=== PATIENT | male | born 2000 | race Caucasian/White ===

== ENCOUNTER 2024-11-14 16:03 | Outpatient (CLI) | payer MEDICARE, SELFPAY ==
--- NOTE | 2024-11-14 16:07 | XR_ITS ---
PROCEDURE INFORMATION: Exam: XR Abdomen Exam date and time: 11/14/2024 4:07 PM Age: 24 years old Clinical indication: Constipation; Additional info: Assessment of fecal burden-obstipation TECHNIQUE: Imaging protocol: Radiologic exam of the abdomen. Views: Frontal supine view of the abdomen. 1 View. COMPARISON: No relevant prior studies available. FINDINGS: Gastrointestinal tract: Moderate amount of fecal material throughout the ascending, transverse, and descending colon. Nonobstructive bowel gas pattern. Intraperitoneal space: There is no free intraperitoneal air. No abnormal intraperitoneal calcifications. Bones/joints: No acute skeletal abnormality or aggressive osseous lesion. IMPRESSION: Moderate constipation.
== END 2024-11-14 23:59 | disposition home or self-care (01) ==
LOC: LAB 16:04
PROVIDERS: Visit Provider Internal Medicine Gastroenterology
DX: K59.00 Constipation, unspecified (principal); R14.0 Abdominal distension (gaseous)
CPT/HCPCS: 74018